=== PATIENT | male | born 1960 | race Caucasian/White ===

== ENCOUNTER → 2020-02-22 | Outpatient (CLI) | payer MEDICARE, OTHER ==
[~2020-02-22] MED LIST: CYCLOBENZAPRINE5 MG PO
== END ==
LOC: CT 02-08 10:00
DX: I71.4 Abdominal aortic aneurysm, without rupture (principal); Z79.899 Other long term (current) drug therapy; Z95.5 Presence of coronary angioplasty implant and graft
CPT/HCPCS: 36415; 82565; Q9965

== ENCOUNTER → 2020-12-12 | Outpatient (CLI) | payer MEDICARE | LOC: CT 09:30 | DX: I71.4 Abdominal aortic aneurysm, without rupture (principal) | CPT/HCPCS: 74170; Q9967 ==